=== PATIENT | female | born 1985 | race Caucasian/White ===

== ENCOUNTER 2016-02-24 21:57 | Emergency (ER) | payer OTHER ==
[~2016-02-24 21:57] MED LIST: DOCUSATE SODIU100 MG PO; IBUPROFEN800 MG PO; LORTAB 5-500 T1 EACH PO; METHOCARBAMOL500 MG PO; Motrin PO; NOHOMEMEDS; PEN-VEE K,VEET500 MG PO; SENNA8.6 MG PO; ULTRAM50 MG PO
== END 2016-02-24 22:24 | disposition left against medical advice (07) ==
LOC: EME 21:57
DX: M54.9 Dorsalgia, unspecified (principal); Z53.21 Procedure and treatment not carried out due to patient leaving prior to being seen by health care provider; S39.92XA Unspecified injury of lower back, initial encounter

== ENCOUNTER 2017-03-15 06:06 | Emergency (ER) | payer OTHER ==
[~2017-03-15] VITALS: Ht 160 cm; Wt 91.1 kg
[2017-03-15] MEDS ORDERED: NARCAN4 MG NS (09:31)
[2017-03-15 10:17] VITALS: BP 124/65
== END 2017-03-15 11:13 | disposition home or self-care (01) ==
LOC: EME 06:06
DX: T40.1X1A Poisoning by heroin, accidental (unintentional), initial encounter (principal); L29.9 Pruritus, unspecified; R00.0 Tachycardia, unspecified; F17.200 Nicotine dependence, unspecified, uncomplicated
CPT/HCPCS: J1200; J2310

== ENCOUNTER 2017-03-27 10:53 | Emergency (ER) | payer OTHER ==
[~2017-03-27] VITALS: Ht 160 cm; Wt 85.5 kg
[~2017-03-27 10:53] MED LIST changes: +NARCAN4 MG NS
[2017-03-27 11:25] LABS: HEMATOCRIT 37.4 % (36.0-46.0); HEMOGLOBIN 13.2 G/DL (11.9-15.5); MCH 30.1 PG (29.0-34.0); MCHC 35.3 G/DL (30.0-36.0); MCV 85.4 FL (83-99); PLATELET COUNT 283 K/uL (156-360); RBC DIS.WIDTH-CV 12.1 % (11.8-14.6); RBC DIS.WIDTH-SD 37.9 % (39-53); RED BLOOD COUNT 4.38 M/uL (3.80-5.20); WHITE BLOOD COUNT 7.7 K/uL (4.1-10.2)
[2017-03-27 11:39] LABS: CHLORIDE 109 mEq/L (99-109); POTASSIUM 3.7 mEq/L (3.7-5.4); SODIUM 141 mEq/L (136-147)
[2017-03-27 11:40] LABS: GLUCOSE 107 mg/dL (70-99)
[2017-03-27 11:44] LABS: CREATININE 1.1 mg/dL (0.6-1.3); GFR ESTIMATE (CALCULATED) > 59 mL/min/
[2017-03-27 11:45] LABS: UREA NITROGEN (BUN) 22 mg/dL (9-23)
[2017-03-27 13:08] LABS: APPEARANCE SL.HAZY ((CLEAR)); BILIRUBIN NEGATIVE; BLOOD LARGE; COLOR AMBER ((YELLOW)); GLUCOSE (STRIP) NEGATIVE; KETONES 5; LEUKOCYTES TRACE; NITRITE NEGATIVE; PROTEIN (STRIP) 100; SPECIFIC GRAVITY 1.033 (1.000-1.030)
[2017-03-27 13:17] LABS: D-DIMER ELISA < 150.00 ng/mLDDU (<230)
[2017-03-27 13:26] LABS: BACTERIA RARE /HPF; EPITHELIAL CELLS RARE /HPF; MUCUS NONE SEEN /LPF; UCUL ADDED? NO; WHITE BLOOD CELLS 0-5 /HPF (0-5)
[2017-03-27 15:02] VITALS: BP 108/85
== END 2017-03-27 15:02 | disposition home or self-care (01) ==
LOC: EME 10:53
PROVIDERS: Emergency Medicine
DX: F41.9 Anxiety disorder, unspecified (principal); F17.200 Nicotine dependence, unspecified, uncomplicated
CPT/HCPCS: 71046; 80048; 81003; 81025; 85027; 85379; 99281; 99284; J2060; J7030

== ENCOUNTER 2017-05-15 19:49 | Emergency (ER) | payer OTHER ==
[~2017-05-15] VITALS: Ht 160 cm; Wt 79.4 kg
[2017-05-15 21:02] LABS: BASOPHIL (%) 0.2 % (0-1); EOSINOPHIL (%) 0.8 % (0-5); EOSINOPHIL COUNT 0.1 K/uL (0-0.3); HEMATOCRIT 40.2 % (36.0-46.0); HEMOGLOBIN 13.5 G/DL (11.9-15.5); IMMATURE GRANULOCYTE (%) 0.3 % (0.0-0.7); LYMPHOCYTE (%) 16.7 % (15-42); LYMPHOCYTE COUNT 1.7 K/uL (1.0-2.8); MCH 28.4 PG (29.0-34.0); MCHC 33.6 G/DL (30.0-36.0); MCV 84.5 FL (83-99); MONOCYTE (%) 5.3 % (3-12); MONOCYTE COUNT 0.5 K/uL (0-0.8); NEUTROPHIL (%) 76.7 % (45-76); NEUTROPHIL COUNT 7.6 K/uL (1.8-6.4); PLATELET COUNT 241 K/uL (156-360); RBC DIS.WIDTH-CV 12.7 % (11.8-14.6); RBC DIS.WIDTH-SD 38.7 % (39-53); RED BLOOD COUNT 4.76 M/uL (3.80-5.20); WHITE BLOOD COUNT 9.9 K/uL (4.1-10.2)
[2017-05-15 21:10] LABS: ALBUMIN 3.8 g/dL (3.2-4.8); CHLORIDE 104 mEq/L (99-109); POTASSIUM 4.4 mEq/L (3.7-5.4); SODIUM 133 mEq/L (136-147)
[2017-05-15 21:13] LABS: GLUCOSE 101 mg/dL (70-99); TOTAL PROTEIN 6.9 g/dL (6.4-8.3)
[2017-05-15 21:15] LABS: TOTAL BILIRUBIN 0.4 mg/dL (0.0-1.0)
[2017-05-15 21:16] LABS: ALKALINE PHOSPHATASE 71 IU/L (3-129); CREATININE 0.8 mg/dL (0.6-1.3); GFR ESTIMATE (CALCULATED) > 59 mL/min/
[2017-05-15 21:17] LABS: UREA NITROGEN (BUN) 15 mg/dL (9-23)
[2017-05-15 21:18] LABS: AST (GOT) 44 IU/L (2-34)
[2017-05-15 21:19] LABS: ALT (GPT) 76 IU/L (3-49)
[2017-05-15] MEDS ORDERED: CLEOCIN300 MG PO (22:13)
[2017-05-15 22:27] VITALS: BP 120/77
== END 2017-05-15 22:28 | disposition home or self-care (01) ==
LOC: EME 19:49
PROVIDERS: Emergency Medicine
PROC: 0H9T0ZZ Drainage of Right Breast, Open Approach (ICD-10-PCS; principal; 2017-05-15)
DX: L02.213 Cutaneous abscess of chest wall (principal); L03.111 Cellulitis of right axilla; F14.90 Cocaine use, unspecified, uncomplicated; N61.1 Abscess of the breast and nipple; G43.909 Migraine, unspecified, not intractable, without status migrainosus
CPT/HCPCS: 80053; 83605; 85025; 87040; 99281; 99284

== ENCOUNTER 2017-05-17 15:18 | Emergency (ER) | payer OTHER ==
[~2017-05-17] VITALS: Ht 160 cm; Wt 80.7 kg
[~2017-05-17 15:18] MED LIST changes: +CLEOCIN300 MG PO
[2017-05-17 15:46] LABS: APPEARANCE SL.HAZY ((CLEAR)); BILIRUBIN NEGATIVE; BLOOD MODERATE; COLOR YELLOW ((YELLOW)); GLUCOSE (STRIP) NEGATIVE; KETONES NEGATIVE; LEUKOCYTES TRACE; NITRITE NEGATIVE; PROTEIN (STRIP) 30; SPECIFIC GRAVITY 1.027 (1.000-1.030)
[2017-05-17 15:54] LABS: BACTERIA RARE /HPF; EPITHELIAL CELLS 1+ /HPF; MUCUS 2+ /LPF; RED BLOOD CELLS 0-5 /HPF (0-5); UCUL ADDED? YES
[2017-05-17 15:58] LABS: BASOPHIL (%) 0.5 % (0-1); BASOPHIL COUNT 0.1 K/uL (0-0.1); EOSINOPHIL (%) 1.4 % (0-5); EOSINOPHIL COUNT 0.1 K/uL (0-0.3); HEMATOCRIT 36.3 % (36.0-46.0); HEMOGLOBIN 12.2 G/DL (11.9-15.5); IMMATURE GRANULOCYTE (%) 0.3 % (0.0-0.7); LYMPHOCYTE (%) 23.3 % (15-42); LYMPHOCYTE COUNT 2.4 K/uL (1.0-2.8); MCH 28.2 PG (29.0-34.0); MCHC 33.6 G/DL (30.0-36.0); MONOCYTE COUNT 0.7 K/uL (0-0.8); NEUTROPHIL (%) 67.5 % (45-76); NEUTROPHIL COUNT 6.9 K/uL (1.8-6.4); PLATELET COUNT 263 K/uL (156-360); RBC DIS.WIDTH-CV 12.5 % (11.8-14.6); RBC DIS.WIDTH-SD 37.9 % (39-53); RED BLOOD COUNT 4.32 M/uL (3.80-5.20); WHITE BLOOD COUNT 10.1 K/uL (4.1-10.2)
[2017-05-17 16:07] LABS: CHLORIDE 101 mEq/L (99-109); SODIUM 133 mEq/L (136-147)
[2017-05-17 16:08] LABS: GLUCOSE 103 mg/dL (70-99)
[2017-05-17 16:12] LABS: CREATININE 0.8 mg/dL (0.6-1.3); GFR ESTIMATE (CALCULATED) > 59 mL/min/
[2017-05-17 16:13] LABS: UREA NITROGEN (BUN) 18 mg/dL (9-23)
[2017-05-17] MEDS ORDERED: MOTRIN800 MG PO (18:38)
[2017-05-17 19:47] VITALS: BP 104/71
== END 2017-05-17 19:48 | disposition home or self-care (01) ==
LOC: EME 15:18
PROC: 0H95XZX Drainage of Chest Skin, External Approach, Diagnostic (ICD-10-PCS; principal; 2017-05-17)
DX: L02.411 Cutaneous abscess of right axilla (principal); F17.200 Nicotine dependence, unspecified, uncomplicated; Z98.890 Other specified postprocedural states
CPT/HCPCS: 71046; 80048; 81003; 83605; 85025; 87070; 87075; 87077; 87086; 87147; 87186; 87205; 99281; 99285; J1885; J2405; J3370; J7030